=== PATIENT | male | born 1965 | race Caucasian/White ===

== ENCOUNTER → 2020-04-29 17:11 | Outpatient (CLI) | payer BC, SELFPAY ==
[2020-04-29 17:44] LABS: Basophils % 0.4 % (0.1-2.0); Eosinophils # 0.1 K/mm3 (0.0-0.4); Eosinophils % 1.4 % (0.1-12.0); Hematocrit 41.5 % (42.0-52.0); Lymphocytes # 2.8 K/mm3 (0.7-4.5); Lymphocytes % 29.7 % (10-50); Mean Corpuscular HGB Conc 36.1 g/dL (31.8-35.4); Mean Corpuscular Hemoglobin 30.2 pg (27.0-31.2); Mean Corpuscular Volume 83.8 fl (80-94); Monocytes # 0.6 K/mm3 (0.1-1.0); Monocytes % 6.2 % (1.7-9.3); Neutrophils % 62.3 % (37.0-80.0); Platelet Count 305 K/mm3 (142-424); Red Blood Count 4.95 M/mm3 (4.60-6.20); Red Cell Distribution Width 14.6 % (11.5-17.5); White Blood Count 9.5 K/mm3 (4.8-10.8)
[2020-04-29 18:04] LABS: Chloride 102 mmol/L (98-107); Potassium 3.8 mmoL/L (3.5-5.1); Sodium 140 mmol/L (136-145)
[2020-04-29 18:06] LABS: Blood Urea Nitrogen 15 mg/dl (9-20); Estimated Glomerular Filt Rate 78 ml/min (>60); GFR (African American) 95 ML/MIN (>60)
[2020-04-29 18:07] LABS: Alanine Aminotransferase 23 U/L (12-78); Albumin Level 4.2 g/dl (3.5-5.0); Albumin/Globulin Ratio 1.6 (1.1-1.8); Alkaline Phosphatase 98 U/L (38-126); Anion Gap 14.8 mEq/L (5-15); Aspartate Amino Transferase 31 U/L (17-59); Bilirubin,Total 1.2 mg/dl (0.2-1.3); Calcium 9.7 mg/dl (8.4-10.2); Carbon Dioxide 27 mmol/L (22.0-30.0); Chol/HDL Ratio 3.7 (1-3.5); Cholesterol 190 mg/dl (140-200); Globulin 2.6 g/dL (1.3-3.2); Glucose 74 mg/dl (74-100); HDL Cholesterol 52 mg/dl (40-60); Total Protein,Serum 6.8 g/dl (6.3-8.2); Triglycerides 120 mg/dl (30-150); VLDL Cholesterol 24 mg/dL (0-40)
[2020-04-29 18:10] LABS: Hemoglobin A1C 5.2 % (4.0-6.0)
[2020-04-29 18:20] LABS: Direct LDL Cholesterol 121.69 mg/dL (100-129)
== END ==
PROVIDERS: Visit Provider Family Medicine
DX: E11.9 Type 2 diabetes mellitus without complications (principal)
CPT/HCPCS: 80053; 80061; 83036; 85025

== ENCOUNTER → 2020-08-19 11:49 | Outpatient (CLI) | payer BC, SELFPAY ==
[2020-08-19 14:02] LABS: Hemoglobin A1C 4.9 % (4.0-6.0)
[2020-08-20 11:16] LABS: Covid-19 Nasal PCR Sendout Lex Not Detected
[2020-08-27 17:21] LABS: Testosterone, Total, LC/MS 423.2 ng/dL (264.0-916.0); Testosterone,Free 5.6 pg/mL (7.2-24.0)
== END ==
PROVIDERS: PCP Family Medicine; Visit Provider Family Medicine
DX: E11.9 Type 2 diabetes mellitus without complications (principal); Z03.818 Encounter for observation for suspected exposure to other biological agents ruled out; R79.89 Other specified abnormal findings of blood chemistry; E29.1 Testicular hypofunction
CPT/HCPCS: 36415; 83036; 84402; 84403; U0004

== ENCOUNTER 2022-04-02 15:11 | Emergency (ER) | payer BC, OTHER, SELFPAY ==
--- NOTE | 2022-04-02 15:20 | HMH.EDSOB ---
ED Disposition Clinical Impression: Bronchitis, Bronchospasm Disposition: Home, Self-Care Condition on Discharge: Fair Instructions: DI for Acute Bronchitis Additional Instructions: Follow-up with your primary care physician in about 3 to 4 days if you do not feel any improvement. Return to the emergency department immediately if you feel worse in any way. Prescriptions: Albuterol Sulfate [Albuterol Sulfate Hfa] 8.5 gm IH QID PRN #1 each PRN Reason: Shortness Of Breath Transmission Status: Pending to [facility] Benzonatate [Benzonatate 100mg cap] 100 mg PO TID PRN #21 cap PRN Reason: Cough [facility]: [facility] predniSONE [Deltasone 20mg tablet] 60 mg PO DAILY #15 tab Transmission Status: [facility] Referrals: Yasir Busch MD [Primary Care Provider] - - Critical Care Critical Care Time: No Attestation: On , the high probability of a clinically significant, sudden or life threatening deterioration of the following system(s) required my full and direct attention, intervention and personal management. The time I documented below is in addition to time spent performing reported procedures but includes the following listed in this critical care notation. Medical Decision Making - [place] Inquiry Pt receiving controlled substance: No Vital Signs: 04/02/22 15:21 04/02/22 15:54 Temperature 99.4 F Temperature Source Oral Pulse Rate 102 H Pulse Rate [Brachial] 100 H Respiratory Rate 18 Blood Pressure 177/99 H Blood Pressure [Right Arm] 161/113 H Blood Pressure Mean 118 Blood Pressure Mean [Right Arm] 129 Blood Pressure Source [Right Arm] Automatic Cuff Blood Pressure Position [Right Arm] Sitting 02 Sat by Pulse Oximetry 100 100 Oxygen Delivery Method Room Air - Lab Data Lab results reviewed: Yes: I reviewed the patient's lab results. Lab Results 04/02/22 15:30: WBC 17.2 H, RBC 4.82, Hgb 14.2, Hct 44.9, MCV 93.3, MCH 29.5, MCHC 31.6 L, RDW 13.8, Plt Count 316, MPV 8.0, Neut % (Auto) 71.8, Lymph % (Auto) 18.2, [place] % (Auto) 6.5, Eos % (Auto) 2.8, Baso % (Auto) 0.7, Neut # (Auto) 12.4 H, Lymph # (Auto) 3.1, [place] # (Auto) 1.1 H, Eos # (Auto) 0.5 H, Baso # (Auto) 0.1 04/02/22 15:30: Sodium 139, Potassium 3.7, Chloride 102, Carbon Dioxide 31 H, Anion Gap 9.7, BUN 13, Creatinine 0.80, Estimated Creat Clear 169, Estimated GFR 101, Est GFR ( Amer) 122, Glucose 89, Calcium 9.3, Total Bilirubin 0.4, AST 29, ALT 24, Alkaline Phosphatase 96, NT-Pro-B Natriuret Pep 124, Total Protein 7.5, Albumin 4.3, Globulin 3.2, Albumin/Globulin Ratio 1.3 04/02/22 15:41: SARS-CoV-2 (PCR) Not detected, Influenza A Untype (PCR) Not detected, Influenza Type B (PCR) Not detected Result diagrams: 04/02/22 15:30 04/02/22 15:30 Orders (Tests/Meds): ED MEDICATIONS Discontinued Medications Generic Name Dose Route Start Last Admin Trade Name Freq PRN Reason Stop Dose Admin Albuterol/Ipratropium 3 ml 04/02/22 15:22 04/02/22 15:30 Ipratropium/Albuterol 3 Ml Neb IH 04/02/22 15:23 3 ml ONCE ONE Administration ORDERS Category Date Time Status Complete Blood Count Auto Diff Stat Lab 04/02/22 15:30 Results - Radiology Data #1 Image(s): Chest Image Reviewed: Yes I reviewed the patient's radiology image Preliminary Findings: Normal/NAD - Reevaluation(s) Time: 15:59 Reevaluation #1: After the nebulizer treatment the patient feels no different. However, on physical examination his wheezing has significantly improved. His oxygen saturation continued to be 100% on room air. Medical Decision Narrative: The patient's work-up in the emergency department did not reveal any life-threatening or dangerous causes for the patient's symptoms. His chest x-ray is normal. He has an elevated white blood cell count which is a nonspecific finding and could be attributed to having been on steroids recently. However, he has not h
[2022-04-02 15:21] VITALS: BP 161/113; PULSE 100; RESP 18; TEMP 37.4; O2SAT 100; BMI 33.0
--- NOTE | 2022-04-02 15:22 | XR_ITS ---
PROCEDURE INFORMATION: Exam: XR Chest Exam date and time: 04/02/2022 3:27 PM Age: 56 years old Clinical indication: Shortness of breath; Additional info: SOB TECHNIQUE: Imaging protocol: Radiologic exam of the chest. Views: 1 view. COMPARISON: No relevant prior studies available. FINDINGS: Airway: The airways are patent. Lungs: Low lung volumes causes crowding of the bronchovascular structures. No acute interstitial or airspace disease. Pleural spaces: Unremarkable. No pleural effusion. No pneumothorax. Heart/Mediastinum: The heart is moderately enlarged. Bones/joints: Partially visualized lower cervical spine fixation hardware without discrete complications. No acute skeletal abnormality or aggressive osseous lesion. IMPRESSION: No acute thoracic pathology.
--- NOTE | 2022-04-02 15:30 | PC.NURSE ---
1530 LABS DRAWN AND COVID SWAB COLLECTED PT TOLERATED WELL. NO NEEDS AT THIS TIME. AT BEDSIDE
--- NOTE | 2022-04-02 15:30 | PC.NURSE ---
XR AT BEDSIDE
[2022-04-02 15:50] LABS: Coronavirus 19, PCR Not Detected (NotDetected); Influenza A, PCR Not Detected (NotDetected); Influenza B, PCR Not Detected (NotDetected)
[2022-04-02 15:54] VITALS: BP 177/99; PULSE 102; O2SAT 100
[2022-04-02 15:55] LABS: Basophils # 0.1 K/mm3 (0-0.2); Basophils % 0.7 % (0.1-2.0); Eosinophils # 0.5 K/mm3 (0.0-0.4); Eosinophils % 2.8 % (0.1-12.0); Hematocrit 44.9 % (42.0-52.0); Hemoglobin 14.2 g/dL (14.1-18.0); Lymphocytes # 3.1 K/mm3 (0.7-4.5); Lymphocytes % 18.2 % (10-50); Mean Corpuscular HGB Conc 31.6 g/dL (31.8-35.4); Mean Corpuscular Hemoglobin 29.5 pg (27.0-31.2); Mean Corpuscular Volume 93.3 fl (80-94); Monocytes # 1.1 K/mm3 (0.1-1.0); Monocytes % 6.5 % (1.7-9.3); Neutrophils # 12.4 K/mm3 (1.8-7.8); Neutrophils % 71.8 % (37.0-80.0); Platelet Count 316 K/mm3 (142-424); Red Blood Count 4.82 M/mm3 (4.60-6.20); Red Cell Distribution Width 13.8 % (11.5-17.5); White Blood Count 17.2 K/mm3 (4.8-10.8)
--- NOTE | 2022-04-02 15:56 | PC.NURSE ---
readjusted BP CUFF; /SO @ bs
[2022-04-02 15:58] LABS: Chloride 102 mmol/L (98-107); MANUAL DIFFERENTIAL MANUAL DIFFERENTIAL (MANUAL DIFF); Potassium 3.7 mmoL/L (3.5-5.1); Sodium 139 mmol/L (136-145)
[2022-04-02 16:01] LABS: Alanine Aminotransferase 24 U/L (12-78); Albumin Level 4.3 g/dl (3.5-5.0); Albumin/Globulin Ratio 1.3 (1.1-1.8); Alkaline Phosphatase 96 U/L (38-126); Anion Gap 9.7 mEq/L (5-15); Aspartate Amino Transferase 29 U/L (17-59); Bilirubin,Total 0.4 mg/dl (0.2-1.3); Blood Urea Nitrogen 13 mg/dl (9-20); Calcium 9.3 mg/dl (8.4-10.2); Carbon Dioxide 31 mmol/L (22.0-30.0); Creatinine Clearance Estimated 169 mL/min (50-200); Estimated Glomerular Filt Rate 101 ml/min (>60); GFR (African American) 122 ML/MIN (>60); Globulin 3.2 g/dL (1.3-3.2); Glucose 89 mg/dl (74-100); Total Protein,Serum 7.5 g/dl (6.3-8.2)
[2022-04-02 16:10] LABS: NT Pro Brain Natriuretic Pep. 124 pg/mL (0-125)
[2022-04-02 17:01] VITALS: BP 152/109; PULSE 80; RESP 20; TEMP 37.2; O2SAT 100
[2022-04-02 17:27] LABS: Hypochromasia 1+; Lymphocytes % 11 % (10-50); Monocytes % 5 % (2-9); Neutrophils % 84 % (42-76); Platelet Estimate Normal; Total Cells Counted 100
== END 2022-04-02 17:04 | disposition home or self-care (01) ==
PROVIDERS: Emergency Provider Emergency Medicine; PCP Family Medicine
DX: J20.9 Acute bronchitis, unspecified (principal); Z79.899 Other long term (current) drug therapy; K21.9 Gastro-esophageal reflux disease without esophagitis; E78.5 Hyperlipidemia, unspecified; I10 Essential (primary) hypertension; Z90.49 Acquired absence of other specified parts of digestive tract
CPT/HCPCS: 71045; 80053; 83880; 85007; 85025; 94640; 99283; C9803; U0003; U0005

== ENCOUNTER → 2022-07-12 11:28 | Outpatient (CLI) | payer BC, SELFPAY | PROVIDERS: PCP Nurse Practitioner Family; Visit Provider Nurse Practitioner Family | DX: N23 Unspecified renal colic (principal) | CPT/HCPCS: 87086 ==

== ENCOUNTER 2022-11-23 18:43 | Emergency (ER) | payer BC, OTHER, SELFPAY ==
[2022-11-23] VITALS (7 sets, daily range): BP systolic 147–170; BP diastolic 84–112; PULSE 65–84; RESP 14–22; TEMP 36.6; O2SAT 92–96; BMI 36.9
--- NOTE | 2022-11-23 18:43 | ECG_ITS ---
APPROVED REPORT Exam: Resting ECG HR:81 bpm ECG Measurements Heart Rate [address] 165 P 50 QRSd 87 QRS 31 QT 347 T 0 QTc 384 Conclusion SINUS RHYTHM NONSPECIFIC T-WAVE ABNORMALITY BORDERLINE ECG UNCONFIRMED REPORT Electronically signed by : Roberto Carlos Ibrahim MD 11/25/2022 20:02:21
--- NOTE | 2022-11-23 19:00 | XR_ITS ---
PROCEDURE INFORMATION: Exam: XR Chest Exam date and time: 11/23/2022 6:57 PM Age: 57 years old Clinical indication: Sternal or substernal pain; Additional info: Chest pain TECHNIQUE: Imaging protocol: Radiologic exam of the chest. Views: 2 views. COMPARISON: CR XR CHEST PORTABLE 04/02/2022 3:27 PM FINDINGS: Lungs: Unremarkable. No consolidation. Pleural spaces: Unremarkable. No pleural effusion. No pneumothorax. Heart/Mediastinum: Upper limits of normal heart size. Vasculature: Tortuous thoracic aorta. Bones/joints: Postsurgical changes of the cervical spine. IMPRESSION: No acute findings.
--- NOTE | 2022-11-23 19:00 | PC.NURSE ---
pt is sitting in bed, at bedside
[2022-11-23 19:10] LABS: Basophils # 0.1 K/mm3 (0-0.2); Basophils % 0.7 % (0.1-2.0); Eosinophils # 0.3 K/mm3 (0.0-0.4); Eosinophils % 3.6 % (0.1-12.0); Hematocrit 44.5 % (42.0-52.0); Lymphocytes # 2.7 K/mm3 (0.7-4.5); Lymphocytes % 37.9 % (10-50); Mean Corpuscular HGB Conc 33.7 g/dL (31.8-35.4); Mean Corpuscular Hemoglobin 30.7 pg (27.0-31.2); Mean Platelet Volume 7.9 fl (7.4-10.4); Monocytes # 0.6 K/mm3 (0.1-1.0); Neutrophils # 3.5 K/mm3 (1.8-7.8); Neutrophils % 49.8 % (37.0-80.0); Platelet Count 324 K/mm3 (142-424); Red Blood Count 4.89 M/mm3 (4.60-6.20); Red Cell Distribution Width 14.1 % (11.5-17.5); White Blood Count 7.1 K/mm3 (4.8-10.8)
[2022-11-23 19:11] LABS: Chloride 108 mmol/L (98-107); Potassium 3.6 mmoL/L (3.5-5.1); Sodium 140 mmol/L (136-145)
[2022-11-23 19:14] LABS: Anion Gap 7.6 mEq/L (5-15); Blood Urea Nitrogen 21 mg/dl (9-20); Calcium 8.7 mg/dl (8.4-10.2); Carbon Dioxide 28 mmol/L (22.0-30.0); Creatinine Clearance Estimated 136 mL/min (50-200); Estimated Glomerular Filt Rate 69 ml/min (>60); GFR (African American) 84 ML/MIN (>60); Glucose 111 mg/dl (74-100)
[2022-11-23 19:30] LABS: Troponin I < 0.01 ng/ml (0.00-0.034)
--- NOTE | 2022-11-23 21:15 | HMH.EDGENADL ---
Discharge Plan Disposition Patient Disposition: Home, Self-Care Condition: Good Prescriptions Prescriptions: New ondansetron 4 mg tablet,disintegrating 4 mg PO Q8H PRN (Reason: Nausea) Qty: 15 0RF pantoprazole [Protonix] 40 mg tablet,delayed release (DR/EC) 40 mg PO DAILY 28 Days Qty: 28 0RF No Action alprazolam 2 mg tablet See Rx Instructions PO HS PRN (Reason: anxiety) Qty: 2 0RF Rx Instructions: use 30-60 minutes before flying methylprednisolone [Medrol (Akil)] 4 mg tablets,dose pack See Rx Instructions PO PER PKG DIR Qty: 21 0RF Rx Instructions: PO PER PKG DIR azithromycin 500 mg tablet 500 mg PO DAILY 3 Days Qty: 3 0RF sildenafil 100 mg tablet See Rx Instructions .ROUTE .COMPLEX Qty: 30 0RF Dose Instruction: TAKE 1 TABLET BY MOUTH EVERY DAY NEEDED FOR SEXUAL ACTIVITY 30 MINUTES TO 4 HOURS BEFORE ACTIVITY Rx Instructions: TAKE 1 TABLET BY MOUTH EVERY DAY NEEDED FOR SEXUAL ACTIVITY 30 MINUTES TO 4 HOURS BEFORE ACTIVITY Referrals Follow up/Referrals: Yasir Busch MD [Primary Care Provider] - See instructions Activity Restrictions/Add. Instructions Additional Instructions/Restrictions: Return the emergency department for worsening chest pain nausea or any other concerns within the next 8 hours otherwise follow-up with your electrocardiograph operator for further testing. Clinical Impressions Clinical Impression: Chest pain Discharge ED Provider: Yue Madden General Adult HPI General Chief complaint: Chest Pain Stated complaint: CHEST PAIN Time Seen by Provider: 11/23/22 20:15 Mode of Arrival: Ambulatory Source of Information: Patient and Spouse Limitations: No Limitations Description of Symptoms (Recalled from ER Triage Doc. by RN): pt comes in with c/o midsternal chest pain ongoing for 4-5 days. pt states that pain is constant and radiates to his upper and lower back. pt also reports dry mouth and dry eyes ongoing for the past month. History of Present Illness HPI narrative: 57-year-old male presents with chest pain for the last 5 days. He says it is substernal constant and radiates to his upper and lower back not tearing or ripping. He says it is worse after he eats and he feels like something is catching in his chest when he eats. He reports dry eyes and dry mouth as well for the last month. No coughing up blood recent travel leg swelling. No cough fever chills. No abdominal pain. Related Data Previous Rx's Medication Instructions Recorded alprazolam 2 mg tablet See Rx Instructions PO HS PRN 07/14/22 anxiety #2 tabs azithromycin 500 mg tablet 500 mg PO DAILY 3 days #3 tabs 07/20/22 methylprednisolone 4 mg tablets in See Rx Instructions PO PER PKG DIR 07/20/22 a dose pack (Medrol (Akil)) #21 tabs sildenafil 100 mg tablet See Rx Instructions .Route 09/20/22 .COMPLEX #30 tabs ondansetron 4 mg disintegrating 4 mg PO Q8H PRN Nausea #15 tabs 11/23/22 tablet pantoprazole 40 mg tablet,delayed 40 mg PO DAILY 4 weeks #28 tabs 11/23/22 release (Protonix) Allergies Allergy/AdvReac Type Severity Reaction Status Date / Time No Known Allergies Allergy Verified 07/12/22 11:07 [facility] Disclaimer: The information contained in this section may have been updated after the patient was seen, as this information can be updated by other users. Social History Smoking Status: Never smoker alcohol intake: never substance use type: denies use current occupational status: unemployed and retired Travel in the last 8 weeks: None household members: spouse housing: house ROS Obtained: Yes All systems reviewed & no additional complaints except as documented Constitutional Constitutional: Denies body ache, Denies chills, Denies fatigue and Denies headache(s) Eyes Eyes: Denies blurry vision ENT Ears, Nose, Mouth, and Throat: Denies epistaxis, Denies headache(s) and Denies hearing lo
[2022-11-23 21:28] LABS: Lipase 171 U/L (23-300)
[2022-11-23 21:33] LABS: D-Dimer 0.61 ug/mL (0.0-0.5)
[2022-11-23 22:17] LABS: Troponin I < 0.01 ng/ml (0.00-0.034)
== END 2022-11-23 22:37 | disposition home or self-care (01) ==
PROVIDERS: Emergency Medicine; Emergency Provider Student in an Organized Health Care Education/Training Program; PCP Family Medicine
DX: R07.89 Other chest pain (principal)
CPT/HCPCS: 71046; 80048; 83690; 84484; 85025; 85378; 93005; 99285

== ENCOUNTER → 2023-01-11 08:50 | Outpatient (CLI) | payer BC, SELFPAY ==
[2023-01-11 15:18] LABS: Uric Acid 5.5 mg/dl (3.5-8.5)
== END ==
PROVIDERS: PCP Nurse Practitioner Family; Visit Provider Nurse Practitioner Family
DX: M25.531 Pain in right wrist (principal)
CPT/HCPCS: 84550

== ENCOUNTER 2023-06-11 22:11 | Emergency (ER) | payer BC, OTHER, SELFPAY ==
[2023-06-11 22:13] VITALS: BP 155/125; PULSE 94; RESP 20; TEMP 36.6; O2SAT 98; BMI 37.3
[2023-06-11 23:00] VITALS: PULSE 86; RESP 18; O2SAT 97
--- NOTE | 2023-06-11 23:05 | CT_ITS ---
PROCEDURE INFORMATION: Exam: CT Abdomen And Pelvis With Contrast Exam date and time: 06/11/2023 11:44 PM Age: 57 years old Clinical indication: Abdominal pain; Prior surgery; Surgery date: 6+ months; Surgery type: Cholecystectomy; Patient HX: PT states for abd pain for approx. 5 days; Additional info: Ruq rlq abd pain, itching TECHNIQUE: Imaging protocol: Computed tomography of the abdomen and pelvis with contrast. Total images: 352 Radiation optimization: All CT scans at this facility use at least one of these dose optimization techniques: automated exposure control; mA and/or kV adjustment per patient size (includes targeted exams where dose is matched to clinical indication); or iterative reconstruction. Contrast material: ISOVUE; Contrast volume: 75 ml; Contrast route: IV; REPORTING DATA: Count of CT and Cardiac NM exams in prior 12 months: This patient has received 0 known CTs and 0 known cardiac nuclear medicine studies in the 12 months prior to the current study. COMPARISON: CR XR CHEST 2V 11/23/2022 6:57 PM FINDINGS: Lungs: 5 mm noncalcified left lower lobe nodule, axial image 11. Lung bases are otherwise clear. Heart: Normal heart size. Mediastinal space: Nonspecific mild distal esophageal wall thickening. Diaphragm: Small hiatal hernia. Liver: Normal liver size and contour. Decreased liver attenuation compatible with steatosis. No mass. Gallbladder and bile ducts: Status post cholecystectomy. No bile duct dilatation. Pancreas: Normal. No ductal dilation. Spleen: Nonenlarged spleen with adjacent splenule. Adrenal glands: Nodular thickening left adrenal gland. Unremarkable right adrenal gland. Kidneys and ureters: No hydronephrosis, nephrolithiasis, or renal mass. Stomach and bowel: Unremarkable stomach and duodenum. No ileus or bowel obstruction. Small bowel is within normal limits. Minor scattered colonic diverticulosis. Mild colonic stool burden. No acute colonic inflammatory process. Collapsed rectum. Appendix: Normal appendix. Intraperitoneal space: Unremarkable. No free air. No significant fluid collection. Vasculature: Abdominal aorta is normal in caliber. Major abdominal vessels enhance appropriately. Lymph nodes: Unremarkable. No enlarged lymph nodes. Urinary bladder: Collapsed bladder. Reproductive: Nonenlarged prostate. Bones/joints: No acute osseous abnormality. Benign-appearing sclerotic bone lesion right iliac bone. Minor lumbar dextrocurvature. Moderate degenerative changes thoracolumbar spine. Minimal anterolisthesis of L4 with respect both L3 and L5 most likely from degenerative spondylosis. Soft tissues: Very tiny fat containing umbilical hernia. IMPRESSION: 1. No acute intra-abdominal or pelvic process. 2. Hepatic steatosis. 3. Small hiatal hernia. 4. Nonspecific distal esophageal wall thickening may reflect reflux esophagitis or neoplasm. Recommend direct visualization. 5. 5 mm noncalcified left lower lobe nodule. For patients at low risk (minimal or absent history of smoking and of other known risk factors), no routine follow-up is indicated. For patients at high risk (history of smoking or of other known risk factors), consider optional CT Chest at 12 months. (Reference: Patsy) 6. Additional chronic and incidental findings. REFERENCES: Patsy H, et al. Guidelines for Management of Incidental Pulmonary Nodules Detected on CT Images: From the Fleischner Society 2017. Radiology. 2017;284(1):228-243.
--- NOTE | 2023-06-11 23:07 | HMH.EDGENADL ---
Discharge Plan Disposition Patient Disposition: Home, Self-Care Condition: Good Prescriptions Prescriptions: No Action prednisone 20 mg tablet 20 mg PO BID 5 Days Qty: 10 0RF naproxen 500 mg tablet 500 mg PO BID Qty: 30 0RF cetirizine [Zyrtec] 10 mg tablet 10 mg PO BID Qty: 60 10RF methylprednisolone [Medrol (Akil)] 4 mg tablets,dose pack See Rx Instructions PO PER PKG DIR Qty: 21 0RF Rx Instructions: PO PER PKG DIR oxycodone-acetaminophen [Percocet] 5-325 mg tablet 1 tab PO Q8H PRN (Reason: pain) Qty: 10 0RF Rx Instructions: for pain in the right flank doxepin 50 mg capsule 50 mg PO HS Qty: 30 2RF alprazolam 2 mg tablet See Rx Instructions PO HS PRN (Reason: anxiety) Qty: 2 0RF Rx Instructions: use 30-60 minutes before flying sildenafil 100 mg tablet 100 mg PO DAILY PRN (Reason: sexual activity) Qty: 30 10RF Rx Instructions: administer 30 minutes to 4 hours before activity Referrals Follow up/Referrals: Kam Crump MD [Staff Physician] - See instructions (for EGD ) Yasir Busch MD [Primary Care Provider] - See instructions Activity Restrictions/Add. Instructions Additional Instructions/Restrictions: No acute abdominal or pelvic emergency identified on your evaluation today. There was nonspecific esophageal wall thickening concerning for esophagitis and possible malignancy. Given the fact that she had a recent EGD in the last few years with biopsies its unlikely that this is cancer however we recommend that you follow-up with Dr. Crump or stop attacher for repeat endoscopy and direct visualization and biopsies as indicated by the procedure. You may take [id number] antacids which would include Pepcid, Maalox, etc. There is also an incidental 5 mm lung nodule found on your CT scan which needs follow-up with your primary care doctor. Please return with any worsening symptoms. Clinical Impressions Clinical Impression: Abdominal pain, Esophagitis, Lung nodule Instructions Patient Instructions: DI for Acute Abdominal Pain Discharge ED Provider: Ethan Lipscomb General Adult HPI General Chief complaint: Abdominal Pain Stated complaint: stomach cramps, pain R side Backj Time Seen by Provider: 06/11/23 22:32 Mode of Arrival: Ambulatory Source of Information: Patient Limitations: No Limitations Description of Symptoms (Recalled from ER Triage Doc. by RN): Pt is 57 y/o M that reports itching all over that started 1 month ago. Unknown source of itching. Patient went to doctor on June 01 and was started on predisone and zyrtec, itching improved. Sunday morning patient started to have abd pain that radiates to his back and hematuria. Patient had blood work and CT scheduled for this but pain has now increased. History of Present Illness HPI narrative: Patient is a 57-year-old male with a history of cholecystectomy here with right-sided abdominal discomfort. States that around 1 month ago he began having itching diffusely on his body went to his primary care physician was put on prednisone which improved his symptoms somewhat however after he stopped the steroids 5 days ago he started having significant abdominal cramping. States that it is primarily on the right side has been constant not intermittent in nature which his primary care doctor again and was noted to have hematuria. Denies any dysuria frequency or urgency. Denies any fevers chills changes in bowel movements still able to pass gas. Had some outpatient orders that were scheduled for this but his pain is worsened the point that he wanted to come to the emergency department. Related Data Previous Rx's Medication Instructions Recorded alprazolam 2 mg tablet See Rx Instructions PO HS PRN 07/14/22 anxiety #2 tabs sildenafil 100 mg tablet 100 mg PO DAILY PRN sexual 12/15/22 activity #30 tabs naproxen 500 mg tablet 500 mg PO BID #30 tabs 01/11/23 prednisone 20
[2023-06-11 23:15] LABS: Microscopic, Urine URINE MICROSCOPIC (MICROSCOPIC)
[2023-06-11 23:24] LABS: Appearance,Urine CLEAR (Clear); Bilirubin,Urine Negative (Negative); Blood, Urine Negative (Negative); Chloride 104 mmol/L (98-107); Color,Urine YELLOW (Yellow); Glucose,Urine (UA) 1+ (Negative); Ketones,Urine Negative (Negative); Leukocyte Esterase,Urine Negative (Negative); Nitrate,Urine Negative (Negative); PH,Urine 5.5 (5.0-8.5); Protein,Urine Negative (Negative); Specific Gravity, Urine >= 1.030 (1.005-1.030); Urobilinogen,Urine 0.2 EU/dl (0.2)
[2023-06-11 23:25] LABS: Potassium 3.5 mmoL/L (3.5-5.1); Sodium 139 mmol/L (136-145)
[2023-06-11 23:28] LABS: Alanine Aminotransferase 66 U/L (12-78); Albumin Level 4.1 g/dl (3.5-5.0); Albumin/Globulin Ratio 1.2 (1.1-1.8); Alkaline Phosphatase 98 U/L (38-126); Anion Gap 13.5 mEq/L (5-15); Aspartate Amino Transferase 43 U/L (17-59); Bilirubin,Total 0.5 mg/dl (0.2-1.3); Blood Urea Nitrogen 24 mg/dl (9-20); Calcium 9.2 mg/dl (8.4-10.2); Carbon Dioxide 25 mmol/L (22.0-30.0); Creatinine Clearance Estimated 126 mL/min (50-200); Estimated Glomerular Filt Rate 63 ml/min (>60); GFR (African American) 76 ML/MIN (>60); Globulin 3.3 g/dL (1.3-3.2); Glucose 189 mg/dl (74-100); Lipase 185 U/L (23-300); Total Protein,Serum 7.4 g/dl (6.3-8.2)
[2023-06-11 23:33] LABS: Squamous Epithelial Cell,Urine Occasional #/hpf (0-5)
[2023-06-11 23:54] LABS: Basophils % 0.4 % (0.1-2.0); Eosinophils # 0.4 K/mm3 (0.0-0.4); Eosinophils % 3.7 % (0.1-12.0); Hemoglobin 15.4 g/dL (14.1-18.0); Lymphocytes # 2.9 K/mm3 (0.7-4.5); Lymphocytes % 29.7 % (10-50); Mean Corpuscular HGB Conc 33.4 g/dL (31.8-35.4); Mean Corpuscular Hemoglobin 28.4 pg (27.0-31.2); Mean Corpuscular Volume 85.1 fl (80-94); Monocytes # 0.6 K/mm3 (0.1-1.0); Monocytes % 6.2 % (1.7-9.3); Neutrophils # 5.9 K/mm3 (1.8-7.8); Platelet Count 374 K/mm3 (142-424); Red Blood Count 5.41 M/mm3 (4.60-6.20); Red Cell Distribution Width 14.5 % (11.5-17.5); White Blood Count 9.8 K/mm3 (4.8-10.8)
[2023-06-12 00:01] VITALS: PULSE 82; RESP 20; O2SAT 95
[2023-06-12 00:24] VITALS: BP 141/83; PULSE 77; O2SAT 94
--- NOTE | 2023-06-12 00:32 | PC.NURSE ---
in room talking in room with patient at this time.
[2023-06-12 00:53] VITALS: BP 141/83; PULSE 82; RESP 16; TEMP 36.7; O2SAT 98
== END 2023-06-12 00:56 | disposition home or self-care (01) ==
PROVIDERS: Student in an Organized Health Care Education/Training Program; Emergency Provider Emergency Medicine; PCP Family Medicine
DX: K20.90 Esophagitis, unspecified without bleeding (principal); R91.1 Solitary pulmonary nodule; R10.9 Unspecified abdominal pain
CPT/HCPCS: 74177; 80053; 81001; 83690; 85025; 96361; 96374; 96375; 99285; J2405; Q9967

== ENCOUNTER 2023-07-16 06:51 | Emergency (ER) | payer BC, OTHER, SELFPAY ==
[2023-07-16 06:53] VITALS: BP 174/108; PULSE 105; RESP 18; TEMP 36.5; O2SAT 99; BMI 36.9
--- NOTE | 2023-07-16 07:05 | PC.NURSE ---
DR RAY AT BEDSIDE
--- NOTE | 2023-07-16 07:37 | PC.NURSE ---
PT IN BED WITH BILATERAL SAFETY RAILS UP IN PLACE. CALL LIGHT WITHIN REACH, PT CONTINUES TO REPORT PAIN. AWARE. INSTRUCTED PT TO USE CALL LIGHT FOR ASSISTANCE. V/U
--- NOTE | 2023-07-16 07:37 | HMH.EDGENADL ---
Discharge Plan Disposition Patient Disposition: Home, Self-Care Prescriptions Prescriptions: New ibuprofen 800 mg tablet 800 mg PO TID PRN (Reason: pain) 7 Days Qty: 20 0RF prednisone 50 mg tablet 50 mg PO DAILY 5 Days Qty: 5 0RF Rx Instructions: Please begin 1 day after ED visit cyclobenzaprine 5 mg tablet 5 mg PO TID PRN (Reason: muscle spasm) 5 Days Qty: 15 0RF No Action prednisone 20 mg tablet 20 mg PO BID 5 Days Qty: 10 0RF naproxen 500 mg tablet 500 mg PO BID Qty: 30 0RF cetirizine [Zyrtec] 10 mg tablet 10 mg PO BID Qty: 60 10RF methylprednisolone [Medrol (Akil)] 4 mg tablets,dose pack See Rx Instructions PO PER PKG DIR Qty: 21 0RF Rx Instructions: PO PER PKG DIR oxycodone-acetaminophen [Percocet] 5-325 mg tablet 1 tab PO Q8H PRN (Reason: pain) Qty: 10 0RF Rx Instructions: for pain in the right flank doxepin 50 mg capsule 50 mg PO HS Qty: 30 2RF alprazolam 2 mg tablet See Rx Instructions PO HS PRN (Reason: anxiety) Qty: 2 0RF Rx Instructions: use 30-60 minutes before flying sildenafil 100 mg tablet 100 mg PO DAILY PRN (Reason: sexual activity) Qty: 30 10RF Rx Instructions: administer 30 minutes to 4 hours before activity Referrals Follow up/Referrals: Yasir Busch MD [Primary Care Provider] - See instructions Activity Restrictions/Add. Instructions Additional Instructions/Restrictions: I recommend that you follow-up and get physical therapy. You may call a physical therapist directly or have Dr. Busch give you another referral. Also recommend that if your symptoms persist beyond a few weeks that you get an outpatient MRI and consider following up with a spine surgeon. Your symptoms today are consistent with sciatica most likely secondary to a herniated disc. Please return to the emergency department with any paralysis urine or bowel incontinence urinary retention high fevers or other concerns. Clinical Impressions Clinical Impression: Sciatica Instructions Patient Instructions: DI for Low Back Pain Discharge ED Provider: Keren Cook General Adult HPI General Chief complaint: Back Pain/Injury Stated complaint: AO 07/13/23 1900 Injury lower back Time Seen by Provider: 07/16/23 07:04 Mode of Arrival: Ambulatory Limitations: No Limitations Description of Symptoms (Recalled from ER Triage Doc. by RN): PT C/O RIGHT SIDED LOWER BACK PAIN THAT STARTED ON SUNDAY AFTER GETTING OUT OF THE SHOWER. REPORTS RIGHT LEG FEELS NUMB. DENIES LOSS OF BOWEL OR BLADDER. NO KNOWN INJURY History of Present Illness HPI narrative: Patient is a 58-year-old presenting with right lower back pain. States this began on Sunday after he was getting out of the shower felt a twinge after which he has had persistent pain. States the pain is located in the paraspinal region in the lower back nothing in the midline and radiates down the posterior aspect of the right leg. States he feels some numbness in his right lower extremity. Denies any motor weakness. Denies any focal saddle anesthesia. Denies urinary or bowel incontinence or urinary retention. Denies any history of injection drug use cancer or fever. Related Data Previous Rx's Medication Instructions Recorded alprazolam 2 mg tablet See Rx Instructions PO HS PRN 07/14/22 anxiety #2 tabs sildenafil 100 mg tablet 100 mg PO DAILY PRN sexual 12/15/22 activity #30 tabs naproxen 500 mg tablet 500 mg PO BID #30 tabs 01/11/23 prednisone 20 mg tablet 20 mg PO BID 5 days #10 tabs 01/11/23 cetirizine 10 mg tablet (Zyrtec) 10 mg PO BID #60 tabs 06/01/23 methylprednisolone 4 mg tablets in See Rx Instructions PO PER PKG DIR 06/01/23 a dose pack (Medrol (Akil)) #21 tabs doxepin 50 mg capsule 50 mg PO HS #30 caps 06/08/23 oxycodone-acetaminophen 5 mg-325 1 tab PO Q8H PRN pain #10 tabs 06/08/23 mg tablet (Percocet) cyclobenzaprine 5 mg tablet 5 mg PO TID PRN muscle spasm 5 07/16/23 days #15
--- NOTE | 2023-07-16 07:46 | PC.NURSE ---
ROUNDED ON PT, NO NEEDS AT THIS TIME. CALL LIGHT WITHIN REACH
--- NOTE | 2023-07-16 08:17 | PC.NURSE ---
DR RAY AT BEDSIDE TO REEVALUATE PT
[2023-07-16 08:22] VITALS: BP 140/82; PULSE 78; RESP 18; TEMP 36.6; O2SAT 98
== END 2023-07-16 08:25 | disposition home or self-care (01) ==
PROVIDERS: Emergency Provider Emergency Medicine; PCP Family Medicine
DX: M54.31 Sciatica, right side (principal); X50.1XXA Overexertion from prolonged static or awkward postures, initial encounter
CPT/HCPCS: 96372; 99283

== ENCOUNTER 2023-12-14 18:39 | Outpatient (CLI) | payer BC, SELFPAY ==
[2023-12-14 19:54] LABS: Creatinine,Urine Random 345 mg/dL (Not Estab.)
[2023-12-14 19:58] LABS: Microalbumin/Creatinine Ratio 25.5
== END 2023-12-14 23:59 ==
LOC: LAB.DROPOF 18:39
PROVIDERS: PCP Family Medicine; Visit Provider Family Medicine
DX: E11.9 Type 2 diabetes mellitus without complications (principal); Z79.84 Long term (current) use of oral hypoglycemic drugs
CPT/HCPCS: 82043; 82570

== ENCOUNTER 2024-03-14 18:00 | Outpatient (CLI) | payer BC, SELFPAY ==
[2024-03-14 18:37] LABS: Hemoglobin A1C 5.5 % (4.0-6.0)
[2024-03-14 19:23] LABS: Alanine Aminotransferase 42 U/L (12-78); Albumin Level 4.4 g/dl (3.5-5.0); Albumin/Globulin Ratio 1.6 (1.1-1.8); Alkaline Phosphatase 79 U/L (38-126); Aspartate Amino Transferase 38 U/L (17-59); Bilirubin,Total 0.5 mg/dl (0.2-1.3); Blood Urea Nitrogen 24 mg/dl (9-20); Calcium 9.8 mg/dl (8.4-10.2); Carbon Dioxide 26 mmol/L (22.0-30.0); Chloride 103 mmol/L (98-107); Chol/HDL Ratio 6.7 (1-3.5); Cholesterol 233 mg/dl (140-200); Estimated Glomerular Filt Rate 63 ml/min (>60); GFR (African American) 76 ML/MIN (>60); Globulin 2.7 g/dL (1.3-3.2); Glucose 100 mg/dl (74-100); HDL Cholesterol 35 mg/dl (40-60); Sodium 140 mmol/L (136-145); Total Protein,Serum 7.1 g/dl (6.3-8.2); Triglycerides 247 mg/dl (30-150); VLDL Cholesterol 49 mg/dL (0-40)
[2024-03-14 19:35] LABS: Direct LDL Cholesterol 135.02 mg/dL (100-129)
[2024-03-14 19:54] LABS: Prostate Specific Ag Screen 0.5 ng/ml (0.0-4.0)
== END 2024-03-14 23:59 | disposition home or self-care (01) ==
LOC: LAB.DROPOF 03-15 08:56
PROVIDERS: PCP Family Medicine; Visit Provider Family Medicine
DX: Z12.5 Encounter for screening for malignant neoplasm of prostate (principal); E11.9 Type 2 diabetes mellitus without complications; Z79.84 Long term (current) use of oral hypoglycemic drugs
CPT/HCPCS: 80053; 80061; 83036; G0103

== ENCOUNTER 2024-09-11 09:55 | Outpatient (CLI) | payer BC, SELFPAY ==
[2024-09-11 18:06] LABS: Basophils % 0.4 % (0.1-2.0); Eosinophils # 0.4 K/mm3 (0.0-0.4); Eosinophils % 4.4 % (0.1-12.0); Hematocrit 45.3 % (42.0-52.0); Hemoglobin 15.3 g/dL (14.1-18.0); Lymphocytes # 2.8 K/mm3 (0.7-4.5); Mean Corpuscular HGB Conc 33.7 g/dL (31.8-35.4); Mean Corpuscular Hemoglobin 29.7 pg (27.0-31.2); Mean Corpuscular Volume 88.1 fl (80-94); Mean Platelet Volume 8.5 fl (7.4-10.4); Monocytes # 0.5 K/mm3 (0.1-1.0); Monocytes % 6.8 % (1.7-9.3); Neutrophils # 4.2 K/mm3 (1.8-7.8); Neutrophils % 53.3 % (37.0-80.0); Platelet Count 298 K/mm3 (142-424); Red Blood Count 5.14 M/mm3 (4.60-6.20); Red Cell Distribution Width 14.3 % (11.5-17.5)
[2024-09-11 18:24] LABS: Alanine Aminotransferase 33 U/L (12-78); Albumin Level 4.4 g/dl (3.5-5.0); Albumin/Globulin Ratio 1.8 (1.1-1.8); Alkaline Phosphatase 64 U/L (38-126); Anion Gap 10.1 mEq/L (5-15); Aspartate Amino Transferase 36 U/L (17-59); Bilirubin,Total 0.8 mg/dl (0.2-1.3); Blood Urea Nitrogen 21 mg/dl (9-20); Calcium 9.4 mg/dl (8.4-10.2); Carbon Dioxide 29 mmol/L (22.0-30.0); Chloride 105 mmol/L (98-107); Chol/HDL Ratio 6.1 (1-3.5); Cholesterol 219 mg/dl (140-200); Estimated Glomerular Filt Rate 62 ml/min (>60); GFR (African American) 76 ML/MIN (>60); Globulin 2.4 g/dL (1.3-3.2); Glucose 76 mg/dl (74-100); HDL Cholesterol 36 mg/dl (40-60); Potassium 4.1 mmoL/L (3.5-5.1); Sodium 140 mmol/L (136-145); Total Protein,Serum 6.8 g/dl (6.3-8.2); Triglycerides 261 mg/dl (30-150); VLDL Cholesterol 52 mg/dL (0-40)
[2024-09-11 18:34] LABS: Direct LDL Cholesterol 137.24 mg/dL (100-129)
[2024-09-11 18:49] LABS: Hemoglobin A1C 5.3 % (4.0-6.0)
== END 2024-09-11 23:59 | disposition home or self-care (01) ==
LOC: LAB.DROPOF 09-12 14:37
PROVIDERS: PCP Family Medicine; Visit Provider Family Medicine
DX: R53.82 Chronic fatigue, unspecified (principal); Z86.39 Personal history of other endocrine, nutritional and metabolic disease; I10 Essential (primary) hypertension
CPT/HCPCS: 80053; 80061; 83036; 85025

== ENCOUNTER 2025-07-14 09:00 | Outpatient (CLI) | payer BC, SELFPAY ==
[2025-07-14 15:01] LABS: Hematocrit 44.3 % (42.0-52.0); Hemoglobin 15.0 g/dL (14.1-18.0); Immature Granulocytes % 0.2 %; Mean Corpuscular HGB Conc 33.9 g/dL (31.8-35.4); Mean Corpuscular Hemoglobin 29.1 pg (27.0-31.2); Mean Corpuscular Volume 86.0 fl (80-94); Nucleated Red Blood Cells % 0 %; Platelet Count 309 K/mm3 (142-424); Red Blood Count 5.15 M/mm3 (4.60-6.20); Red Cell Distribution Width-SD 41.2 fL; White Blood Count 9.0 K/mm3 (4.8-10.8)
[2025-07-14 15:22] LABS: Hemoglobin A1C 7.3 % (4.0-6.0)
[2025-07-14 15:31] LABS: Alanine Aminotransferase 104 U/L (12-78); Alkaline Phosphatase 78 U/L (38-126); Aspartate Amino Transferase 75 U/L (17-59); Bilirubin,Total 0.9 mg/dl (0.2-1.3); Blood Urea Nitrogen 20 mg/dl (9-20); Carbon Dioxide 29 mmol/L (22.0-30.0); Creatinine,Serum 1.20 mg/dl (0.66-1.25); Estimated Glomerular Filt Rate 62 ml/min (>60); GFR (African American) 75 ML/MIN (>60); Total Protein,Serum 7.1 g/dl (6.3-8.2)
[2025-07-14 15:32] LABS: Calcium 9.4 mg/dl (8.4-10.2); Cholesterol 223 mg/dl (140-200); Glucose 114 mg/dl (74-100); HDL Cholesterol 39 mg/dl (40-60); Triglycerides 150 mg/dl (30-150)
[2025-07-14 15:51] LABS: Albumin Level 4.3 g/dl (3.5-5.0); Albumin/Globulin Ratio 1.5 (1.1-1.8); Anion Gap 12.9 mEq/L (5-15); Chloride 102 mmol/L (98-107); Globulin 2.8 g/dL (1.3-3.2); Potassium 3.9 mmoL/L (3.5-5.1); Sodium 140 mmol/L (136-145)
[2025-07-14 16:01] LABS: Thyroid Stimulating Hormone 0.94 uIU/mL (0.465-4.68)
[2025-07-14 16:18] LABS: Hepatitis C Ab Qual. W/ RFX NEGATIVE (Negative)
[2025-07-15 08:27] LABS: Hepatitis B Surface Antigen Negative (Negative)
--- OUTSIDE RECORDS SUMMARY | 2025-07-16 08:57 | XMS_ITS | Clinical Summary ---
Author Organization [facility] Address [address] [place] [id number] Phone Care Team Providers Care Teacher Ballet Name Role Phone Kelvin Greene MD [phone] Conditions or Problems Problem Name Problem Code Onset Date Status Entry Date Provider Comment Standard Description Annotate LUMBAR RADICULOPATHY 394799193 (SNOMED CT) 10/21 Active 10/21 Aleyda Ortega MA Lumbar radiculopathy FOLLOW-UP EXAMINATION FOLLOWING OTHER SURGERY Z09 (ICD-10-CM ) 10/25 Active 10/25 Kristian Patel NP Encounter for follow-up examination after completed treatment for conditions other than malignant neoplasm HERNIATED CERVICAL DISC 324644102 (SNOMED CT) Active Kelvin Greene MD Displacement of cervical intervertebral disc SPONDYLOSIS, CERVICAL M47.812 (ICD-10-CM ) Active Kelvin Greene MD Spondylosis without myelopathy or radiculopathy, cervical region Medications Medication Instructions Start Date Stop Date Generic Name [facility] Provider AMLODIPINE-ATORV ASTATIN 10-20 MG TABS [place] AMLODIPINE-A TORVASTATIN [id number] Kelvin Greene MD Medications Administered No information available. Allergies, Adverse Reactions, Alerts Allergy Name Reaction Description Start Date Severity Statu s Provider SHELLFISH itching Critical Kelvin Greene MD Results No information available. Plan of Care Type Date Detail Pending order GA x 1 therapeu tic injection & follow up with ordering MD Procedures No information available. Vital Signs Date Name Value Unit Description BMI (Body Mass Index) 36.94 kg/m2 Bod y Mass Index (Ratio) Height 73 [in_us] height E&M Weight Measured 280 [lb_av] weight E& M Weight Measured 280 [lb_av] weight E& M BP Diastolic 99 mm[Hg] blood pressu re, diastolic BP Systolic 147 mm[Hg] blood pressur e, systolic Heart Rate 75 /min pulse rate Body Temperature 98 [degF] temperat ure E&M Respiratory Rate 20 /min respirat ory rate E&M Immunizations No information available. Advance Directives No information available.
--- OUTSIDE RECORDS SUMMARY | 2025-07-16 08:58 | XMS_ITS | Clinical Summary ---
Author Organization [facility] Address [address] [place] [address] Phone Care Team Providers Care Hall Coordinator Name Role Phone Yasir Busch MD Primary Care Provider [phone] Allergies No known active allergies Medications dicyclomine (BENTYL) 10 mg Oral Capsule 9 Active metoprolol succinate ER (TOPROL-XL) 100 mg Oral Tablet Sustained Release 24 hr 9 Active cloNIDine (CATAPRES) 0.1 mg Oral Tablet Take 0.1 mg by mouth every 8 hours. 9 Active amLODIPine-guille zepril (LOTREL) 10-40 mg Oral Capsule Take 1 Capsule by mouth daily. Active sodium,potassiu m,mag sulfates (SUPREP BOWEL PREP KIT) 17.5-3.13-1.6 gram Oral Recon SolnIndications :Special screening for malignant neoplasms, colon Take 1 kit per physician instructions 354 mL 3 Active Additional Information Patient not taking.Reason: Therapy Completed, Reported on 02/22/2024 DEXCOM G6 PLATFORM ATTENDANT Misc Misc 4 Active NOVOLOG FLEXPEN U-100 INSULIN 100 unit/mL (3 mL) SubQ Insulin Pen 4 Active lisinopriL (PRINIVIL;ZESTR IL) 5 mg Oral Tablet 4 Active metFORMIN (GLUCOPHAGE) 500 mg Oral Tablet 4 Active sildenafiL (VIAGRA) 100 mg Oral Tablet TAKE 1 TABLET BY MOUTH EVERY DAY NEEDED FOR SEXUAL ACTIVITY. ADMINISTER 30 MINUTES TO 4 HOURS BEFORE ACTIVITY 4 Active BD JENNIFER 2ND GEN PEN NEEDLE 32 gauge x Misc Needle 4 Active Active Problems Problem Noted Date Diagnosed Date Diverticular disease of large intestine 10/04/19 21 VERN (acute kidney injury) 12/14/2019 Chest wall pain 12/14/2019 Essential hypertension 12/14/2019 Type 2 diabetes mellitus, wi thout long-term current use of insulin 12/14/2019 Class 2 obesity in adult 12/14/2019 GERD (gastroesophageal reflux disease) 0 History of adenomatous polyp of colon 02/03/2013 Stage 2 chronic kidney disease Anemia due to chronic kidney disease Contrast dye induced nephropathy Anemia in stage 3 chronic kidney disease Right flank pain Surgical History Surgery Date Site/Laterality Comments HAND SURGERY left,2 fingers OTHER SURGICAL HISTORY lymph nodes removed from neck CHOLECYSTECTOMY, LAPAROSCOPIC 09/07/2010 N/A LAPAROSCOPIC CHOLECYSTECTOMY POSSIBLE OPEN - SCIP performed by AMANDO KELLY at [facility] OR VERTEBROPLASTY CYST REMOVAL Right forehead COLONOSCOPY 10/2020 Medical History Medical History Date Comments Hypertension GERD (gastroesophageal reflux disease) 2015 Arthritis Rheumatoid arthritis (HCC) Diabetes mellitus (HCC) Colon polyp Colon cancer (HCC) Family History Medical History Relation Name Comments Colon Polyps Father Von Alex, Sr. non-cancerol s No Known Problems Maternal Grandfather mu rdered Hypertension Mother Colon Cancer Paternal Grandfather JOSE M Johnson ag e 77 Heart Attack Paternal Grandmother ag e 55 Anesth Problems Neg Hx Relation Name Status Comments Father Von Johnson, Sr. Maternal Grandfather Maternal Grandmother Alive Mother Paternal Grandfather JOSE M Johnson Paternal Grandmother Social History Tobacco Use Types Packs/Day Years Used Date Smoking Tobacco: Former Cigarettes 0.3 22 0 10/01/1987 - 10/01/2009 Smokeless Tobacco: Former Snuff Quit: 03/10/2010 Tobacco Cessation:Counseling Given: Not Answered Comments:I smoked as a youth and chewed tobacco as an adult Alcohol Use Standard Drinks/Week Comments No 0 (1 standard drink = 0.6 oz pure alcohol) 1 or 2 a year; last significant use ~2015 Sexually Active Control Partners Comments Yes Female Sex and Gender Information Value Date Recorded Sex Assigned at Not on file Legal Sex Male 12:58 AM EDT Gender Identity Not on file Sexual Orientation Not on file Last Filed Vital Signs Vital Sign Reading Time Taken Comments Blood Pressure 135/78 02/22/2024 8:18 AM EDT Pulse 67 02/22/2024 8:18 AM EDT Temperature 36.6 C (97.9 F) 02/22/2024 6:59 AM EDT Respiratory Rate 16 02/22/2024 8:18 AM EDT Oxygen Saturation 92% 02/22/2024 8:18 AM EDT Inhaled Oxygen Concentration - - Weight 117.5 kg (259 lb) 02/22/2024 6:59 AM EDT Height 185.4 cm (6' 1 ) 02/22/2024 6:59 AM EDT Body Mass Index 34.17 02/22/2024 6:59 AM EDT Plan of Treatment Health Maintenance Due Date Last Done Comments Annual Wellness Exam 1970 Lipids 1977 Diabetic Eye Exam 1985 Kidney Health: uACR 1985 Hepatitis B Vaccine (1 of 3 - 19+ 3-dose series) 1986 Pneumococcal Vaccine 50+ (1 of 2 - PCV) 1986 DTaP/TDaP/Td (1 - Tdap) 12/06/1996 12/05/1996 Cologuard 2012 FIT 2012 Sigmoidoscopy 2012 Virtual Colonography 2012 Zoster (1 of 2) 2017 Hemoglobin A1c 04/10/2020 10/11/2019 Kidney Health: eGFR 08/15/2021 08/15/2020, 12/15/2019, 12/14/2019, Additional history exists COVID-19 Vaccine ( season) 2025 07/05/2023, 07/12/2022, 02/17/2022, Additional history exists Influenza Vaccine (#1) 2025 , 07/12/2022, 07/14/2021, Additional history exists Colon Cancer Screening 02/21/2027 Colonoscopy 02/21/2027 02/22/2024, 10/04/2020 Meningococcal B Vaccine Aged Out No l onger eligible based on patient's age to complete this topic Procedures Procedure Name Priority Date/Time Associated Diagnosis Comments COLONOSCOPY Routine 02/22/2024 8:02 AM EDT Personal history of colonic polyps COMPREHENSIVE METABOLIC PANEL STAT 08/15/2020 10:43 AM EST HEMOGLOBIN A1C STAT 10/11/2019 4:06 PM EST from Last 3 Months or Most Recently Relevant to Health Maintenance Results * COLONOSCOPY (02/22/2024 8:02 AM EDT) Anatomical Region Laterality Modality Endoscopy Narrative 02/22/2024 8:06 AM EDT Table formatting from the original result was not included. Findings Multiple diverticula of mild severity in the transverse colon, descending colon and sigmoid colon; no bleeding was identified The mucosa of the colon and terminal ileum was normal. Two 3 mm sessile polyps in the transverse colon; no bleeding was identified; performed cold forceps biopsy with complete en bloc removal. There was no evidence of postpolypectomy bleeding. One 3 mm sessile polyp in the rectum; no bleeding was identified; performed cold forceps biopsy with complete en bloc removal. There was no evidence of postpolypectomy bleeding. Recommendation Await pathology results Recommend a high fiber diet. Interval to next Colonoscopy will be based upon histology of polyp(s). Indication Personal history of colonic polyps Staff Staff Role Monica Mariscal, RN Nurse Rashawn Rasmussen, R[employer] PAINT MAKER HELPER ROO[employer] CEMENT AND PAINT MAKER HELPER García Coppola MD Performing Provider Medications See Anesthesia Record. Preprocedure A history and physical has been performed, and patient medication allergies have been reviewed. The patient's tolerance of previous anesthesia has been reviewed. The risks and benefits of the procedure and the sedation options and risks were discussed with the patient. All questions were answered and informed consent obtained. ASA 3 - Patient with severe systemic disease Details of the Procedure The patient underwent monitored anesthesia care, which was administered by an anesthesia professional. The patient's blood pressure, heart rate, level of consciousness, oxygen, respirations, ECG and ETCO2 were monitored throughout the procedure. A digital rectal exam was performed. The scope was introduced through the anus and advanced to the terminal ileum. Retroflexion was performed in the rectum. Bowel prep was adequate. The patient experienced no blood loss. The procedure was not difficult. The patient tolerated the procedure well. There were no apparent adverse events. Patient provided education and educated on specific discharge instructions. Patient educated on medications given during the procedure and new medications for discharge. Patient verbalizes understanding of discharge education. Patient stable and awaiting transport for discharge. Events Procedure Events Event Event Time ENDO SCOPE IN TIME 02/22/2024 7:47 AM ENDO CECUM REACHED 02/22/2024 7:51 AM ENDO SCOPE WITHDRAW BEGIN 02/22/2024 7:51 AM TSG LUME TI REACHED 02/22/2024 7:52 AM ENDO SCOPE OUT TIME 02/22/2024 8:02 AM Specimens ID Type Source Tests Collected by Time 1 : Tissue Large Intestine, Transverse Colon TSG PATHOLOGY ORDER García Coppola MD 02/22/2024 [id number] 2 : Tissue Large Intestine, Rectum TSG PATHOLOGY ORDER García Coppola MD 02/22/2024 [id number] García Coppola MD ENDOSCOPY PROCEDURE OR DERABLES Final Result * (ABNORMAL) COMPREHENSIVE METABOLIC PANEL (08/15/2020 10:43 AM EST) Sodium 138 136 - 145 mmol/L 08/15/2020 11:07 AM EST [facility] Potassium 3.5 3.5 - 5.0 mmol/L 08/15/2020 11:07 AM EST [facility] Chloride 102 98 - 107 mmol/L 08/15/2020 11:07 AM EST [facility] Total CO2 25 22 - 29 mmol/L 08/15/2020 11:07 AM EST [facility] Anion Gap 11 7 - 16 mmol/L 08/15/2020 11:07 AM [facility] Calcium 10.1 8.6 - 10.4 mg/dL 08/15/2020 11:07 AM EST [facility] Glucose Lvl 102(H) 74 - 100 mg/dL 08/15/2020 11:07 AM EST [facility] BUN 14 6 - 20 mg/dL 08/15/2020 11:07 AM [facility] Creatinine 0.97 0.67 - 1.30 mg/dL 08/15/2020 11:07 AM [facility] Albumin 5.2 3.5 - 5.2 gm/dL 08/15/2020 11:07 AM [facility] Total Protein 8.4(H) 6.4 - 8.3 gm/dL 08/15/2020 11:07 AM [facility] Bili Total 1.0 0.1 - 1.4 mg/dL 08/15/2020 11:07 AM [facility] ALT 21 <=41 U/L 08/15/2020 11:07 AM [facility] AST 26 <=40 U/L 08/15/2020 11:07 AM [facility] Alk Phos 143(H) 40 - 129 U/L 08/15/2020 11:07 AM [facility] GFR Afr Am 103 >=60 mL/min/1.7 3 m2 08/15/2020 11:07 AM [facility] GFR Non Afr Am 89 >=60 mL/min/1.7 3 m2 08/15/2020 11:07 AM [facility] Comment: This estimated GFR was calculated using CKD-EPI equation which is modified based on ethnicity for Non Americans and Americans. Both results are reported since it is not always possible to determine the patient's ethnicity. This equation should only be used for individuals 18 and older. It has not been validated for use with the elderly (>70 years), women, or in some racial or ethnic subgroups, such as Hispanics. The equation will be less accurate in people with differences in nutritional status or muscle mass. Blood VENOUS BLOOD / Unknown Venipuncture / Unknown 08/15/2020 10:43 AM EST 08/15/2020 10:46 AM EST us Shantanu Agarwal MD CHEMISTRY ORDERABLES Final Resu lt [facility] [address] [facility] [place] [address] * (ABNORMAL) HEMOGLOBIN A1C (10/11/2019 4:06 PM EST) Hgb A1C 11.1(H) 4.2 - 5.6 % 10/11/2019 9:24 PM EST [employer] Est. Avg Glucose 272 mg/dL 10/11/2019 9:24 PM EST [facility] [employer] Blood VENOUS BLOOD / Unknown Venipuncture / Unknown 10/11/2019 4:06 PM EST 10/11/2019 4:12 PM EST Narrative [facility] - 10/11/2019 9:24 PM EST REFERENCE RANGE: Normal: 4.0-5.6% Pre-diabetes: 5.7-6.4% Provisional diagnosis of diabetes: >6.4% Hgb F>10% and anything which shortens red cell survival, such as hemolytic anemia, or unstable hemoglobin variants such as HbSS, HbSC, or HbCC, will lower the HbA1c value associated with a given level of glycemic control. us Bakari Paige MD CHEMISTRY ORDERABLES Final Re sult [facility] [address] [facility] , [place] [address] from Last 3 Months or Most Recently Relevant to Health Maintenance Insurance PPO ANTHEM PPO ANTHEM PPO ANTHEM PPO Advance Directives For more information, please contact: [phone] * Full Code (Latest Code Status on File) Date Activated Date Inactivated Comments 12/14/2019 1:17 PM 12/15/2019 8:52 PM Care Teams Hall Coordinator Relationship Specialty Start Date End Date Yasir Busch MD PCP - General 07/11/10
== END 2025-07-14 23:59 ==
LOC: LAB.DROPOF 07-16 08:50
PROVIDERS: PCP Nurse Practitioner; Visit Provider Nurse Practitioner
DX: E78.5 Hyperlipidemia, unspecified (principal); I10 Essential (primary) hypertension; E11.9 Type 2 diabetes mellitus without complications; J01.00 Acute maxillary sinusitis, unspecified; Z12.5 Encounter for screening for malignant neoplasm of prostate; Z11.59 Encounter for screening for other viral diseases
CPT/HCPCS: 80053; 80061; 82043; 82570; 83036; 84443; 85025; 86803; 87340; 87389; G0103